=== PATIENT | male | born 1975 | race Caucasian/White ===

== ENCOUNTER 2017-03-20 09:23 | Emergency (ER) | payer OTHER ==
[~2017-03-20] VITALS: Ht 172.7 cm; Wt 98.5 kg
[~2017-03-20 09:23] MED LIST: ACET-1256 PO; MELA3CAP PO
[2017-03-20 09:26] VITALS: TEMP 36.8; Ht 172.7 cm; Wt 98.5 kg
[2017-03-20] MEDS ORDERED: SULFAMETHOXAZOLE/TRIMETHOPRIM DS 800/160MG TAB PO STA (10:12)
[2017-03-20] MEDS ORDERED: SULF800T23 PO (10:15)
[2017-03-20] MEDS ORDERED: CEPHALEXIN MONOHYDRATE 250 MG CAP PO ONE (10:15)
[2017-03-20] MEDS ORDERED: CEPH500C PO (10:15)
[2017-03-20 10:37] VITALS: BP 129/85; PULSE 81; O2SAT 97
--- NOTE | 2017-03-20 16:45 | EMERGENCY ROOM VISIT NOTE ---
History Report prepared by Cathryn: Shruti Panchal Under the Supervision of: Benitez CarcamoO. First contact with patient: 09:53 Chief Complaint: NASAL PAIN/INJURY Stated Complaint: SWOLLEN NOSE History of Present Illness The patient is a 42 year old male who presents to the Emergency Room with complaints of worsening nasal pain for the past 2-3 days. He reports that the pain started on the left side of his nose 2-3 days ago. Initially he thought that his symptoms were due to his seasonal allergies. He reports rhinorrhea and has frequently been blowing his nose due to allergies. Yesterday he noticed swelling to his nose. The patient has a history of cellulitis and has had cellulitis on his nose in the past. He states that his current symptoms feel like his previous cellulitis. He rates his pain as a 6/10 in severity. He is able to swallow and breathe without difficulty. The patient denies fevers, sore throat, cough, and shortness of breath. Source of History: patient Onset: 2-3 days ago Position: nose Symptom Intensity: 6/10 Quality: other (swelling) Timing: worsening Associated Symptoms: No SOB, No cough, No fevers, No sorethroat Review of Systems See HPI for pertinent positives & negatives. A total of 10 systems reviewed and were otherwise negative. Past Medical & Surgical Medical Problems: (1) Hypertension Surgical Problems: (1) S/P appendectomy Family History FHx: cancer Hypertension Social History Smoking Status: Never Smoker Smokeless Tobacco Use: No Alcohol Use: none Marital Status: Housing Status: lives with family Occupation Status: employed Current/Historical Medications Scheduled Cephalexin Monohydrate (Keflex), 500 MG PO QID Sulfamethoxazole-Trimethoprim (Bactrim Ds 800MG/160MG), 1 TAB PO BID Scheduled PRN Acetaminophen (Tylenol), 1,000 MG PO Q3HRS PRN for Pain Melatonin (Melatonin), 6 MG PO HS PRN for Sleep Allergies Coded Allergies: No Known Allergies (Verified , `, 03/20/17) Physical Exam Vital Signs Date Time Temp Pulse Resp B/P Pulse Ox O2 Delivery O2 Flow Rate FiO2 03/20/17 10:37 81 18 129/85 97 03/20/17 09:26 36.8 88 18 137/87 96 Room Air Physical Exam GENERAL: alert, well appearing, well nourished, no distress, non-toxic, sitting up in bed. EYE EXAM: normal conjunctiva OROPHARYNX: no exudate, no erythema, lips, buccal mucosa, and tongue normal and mucous membranes are moist NECK: supple, no nuchal rigidity, no adenopathy, non-tender NOSE: Firmness and swelling over the left lateral soft tissue of the nasal cartilage, no erythema or induration. Skin is firm. LUNGS: Clear to auscultation. Normal chest wall mechanics HEART: no murmurs, S1 normal and S2 normal ABDOMEN: abdomen soft, non-tender, normo-active bowel sounds, no masses, no rebound or guarding. SKIN: no rashes and no bruising UPPER EXTREMITIES: upper extremities are grossly normal. LOWER EXTREMITIES: No pitting edema. NEURO EXAM: Normal sensorium Medical Decision & Procedures Medications Administered Medications (Trade) Dose Ordered Sig/Chin Route Start Time Stop Time Status Last Admin Dose Admin Trimethoprim/ Sulfamethoxazole (Septra Ds 800/ 160MG Tab) 1 tab NOW STAT PO 03/20/17 10:12 03/20/17 10:13 DC 03/20/17 10:33 1 TAB Cephalexin Monohydrate (Keflex Cap) 500 mg NOW ONCE PO 03/20/17 10:15 03/20/17 10:16 DC 03/20/17 10:33 500 MG ED Course ED COURSE: Vital signs were reviewed and showed normal vitals. The patients medical record was reviewed The above diagnostic studies were performed and reviewed. ED treatments and interventions as stated above. 0954: The patient was evaluated in room B11B. A complete history and physical examination was performed. At this time I discussed my findings with the patient and he understands and agrees with the treatment plan. Based on the patients age, coexisting illnesses, exam and lab findings the decision to treat as an outpatient was made. 1012: Septra Ds 800/160 mg tab PO 1015: Keflex 500 mg PO The patient remained stable while under my care. The patient appeared well at the time of discharge. Medical Decision Differential diagnosis includes etiologies such as cellulitis, abscess, MRSA infection, DVT, necrotizing fasciitis, dermatitis, drug eruption, as well as others were entertained. Patient is a 42-year-old male who presents the ER for swelling in the left lateral aspect of his nose. No surrounding erythema or induration. It is tender. He has several comedones present but there is no overt signs of infection. There us no signs of septal or preseptal cellulitis. Based on the swelling I do favor this is likely secondary to a comedone that may be possibly starting to get infected. He was given antibiotics and discharged follow-up with his primary care doctor. Discussed with Pt concerning signs and symptoms to watch out for. Pt was instructed to follow up with their PCP and discussed with the patient their option to return to the ED at anytime for persistent or worsening symptoms. The appropriate anticipatory guidance and out-patient management, including indications for return to the emergency department, were explained at length to the patient and understood. Impression Primary Impression: Nasal swelling Scribe Attestation The scribe's documentation has been prepared under my direction and personally reviewed by me in its entirety. I confirm that the note above accurately reflects all work, treatment, procedures, and medical decision making performed by me. Departure Information Dispostion Home / Self-Care Prescriptions Cephalexin Monohydrate (Keflex) 500 Mg Cap 500 MG PO QID, #28 CAP Prov: Jesus Chester, DO 03/20/17 Sulfamethoxazole-Trimethoprim (Bactrim Ds 800MG/160MG) 1 Tab Tab 1 TAB PO BID, #7 TAB Prov: Jesus Chester, DO 03/20/17 Referrals No Doctor, Assigned (PCP) Forms HOME CARE DOCUMENTATION FORM, IMPORTANT VISIT INFORMATION, WORK / SCHOOL INSTRUCTIONS Patient Instructions Cellulitis - [facility], [facility] Additional Instructions Please follow up with your primary care doctor with in the next 24 hours. Any worsening of your symptoms, please return to the ED immediately. This includes fevers greater than 100.4, change in vision, redness around your eye, swelling around your eye, pain with movement of your eye, trouble swallowing, trouble breathing or any other concerning signs or symptoms from your standpoint. Please take antibiotics as prescribed. Please apply warm compresses to the affected area. Please take Motrin or Tylenol as needed for pain.
== END 2017-03-20 10:38 | disposition home or self-care (01) ==
LOC: C.EDB 09:24
DX: J34.89 Other specified disorders of nose and nasal sinuses (principal); I10 Essential (primary) hypertension; Z98.890 Other specified postprocedural states; Z80.9 Family history of malignant neoplasm, unspecified; Z82.49 Family history of ischemic heart disease and other diseases of the circulatory system

== ENCOUNTER 2018-05-18 16:23 | Inpatient (IN) | payer OTHER ==
[~2018-05-18] VITALS: Ht 170.2 cm; Wt 97.2 kg
[2018-05-18] MEDS ORDERED: ACETAMINOPHEN 500 MG TAB PO STA (16:40)
[2018-05-18] MEDS ORDERED: KETOROLAC TROMETHAMINE 30 MG/ML VIAL IV STA (16:40)
[2018-05-18] MEDS ORDERED: SODIUM CHLORIDE 0.9% 1000ML 1,000 ML IV ONE (16:45)
[2018-05-18] MEDS ORDERED: IBUP-1451 PO (16:46)
--- NOTE | 2018-05-18 17:10 | EMERGENCY ROOM VISIT NOTE ---
History First contact with patient: 16:34 Chief Complaint: FEVER Stated Complaint: PAIN IN THE KIDNEY AREA, TEMP 100 History of Present Illness The patient is a 43 year old male who presents to the Emergency Room with complaints of a fever of 100F, headache and flank pain that started yesterday morning. Patient initially thought that he was getting 1 of his migraines. Usually, the patient gets a visual disturbance with his migraines. This was absent. The patient took ibuprofen with moderate pain relief. He denies any severe neck pain. He has had significant dysuria. This started yesterday. He denies any hematuria. No penile discharge. No scrotal discomfort. He denies any history of kidney stones. He denies any nausea or vomiting. He does admit to a decreased appetite over the last 2 days. No changes in bowel movements. Review of Systems 10 system review performed and negative unless noted in HPI or below Past Medical/Surgical History Medical Problems: (1) Hypertension (2) Sepsis Surgical Problems: (1) S/P appendectomy Family History FHx: cancer Hypertension Social History Smoking Status: Never Smoker Alcohol Use: none Marital Status: Housing Status: lives with family Occupation Status: employed Current/Historical Medications Scheduled PRN Ibuprofen Tab (Motrin), 800 MG PO Q8H PRN for Pain Physical Exam Vital Signs Date Time Temp Pulse Resp B/P (MAP) Pulse Ox O2 Delivery O2 Flow Rate FiO2 05/18/18 18:49 37.5 102 18 119/62 95 05/18/18 16:30 39.2 117 18 130/71 98 Room Air Physical Exam GENERAL: 43-year-old male, in no acute distress, nondiaphoretic, well-developed well-nourished. SKIN: The skin was without rashes, erythema, edema, or bruising. HEAD: Normocephalic atraumatic. EYES: Conjunctivae without injection, sclerae without icterus. Extraocular movements intact. MOUTH: Mucous membranes dry tonsils are not enlarged. Pharynx without erythema or exudate. Uvula midline. Airway patent. Tongue does not deviate. NECK: Supple without nuchal rigidity. No lymphadenopathy. Cervical spine is nontender. No JVD. HEART: Regular rate and rhythm without murmurs gallops or rubs. LUNGS: Clear to auscultation bilaterally without wheezes, rales or rhonchi. No accessory muscle use. ABDOMEN: Positive bowel sounds x 4.Soft, nontender, without organomegaly. No guarding or rebound tenderness. No CVA tenderness appreciated bilaterally. MUSCULOSKELETAL: No muscle atrophy, erythema, or edema noted. No tenderness over the spinous processes throughout the spine. Full range of motion in all extremities. No tenderness to palpation. Normal gait. Strength 5/5 throughout. NEURO: Patient was alert and oriented to person place and time. Normal sensation to touch. No focal neurological deficits. Medical Decision & Procedures ER Provider Diagnostic Interpretation: CT abdomen and pelvis with and without contrast IMPRESSION: 1. Slight nonspecific bladder wall thickening. 2. Minimal sigmoid wall thickening raising the possibility of a mild nonspecific colitis. 3. No evidence for abscess collection or obstructive change. The above report was generated using voice recognition software. It may contain grammatical, syntax or spelling errors. Electronically signed by: Adolfo Solorio M.D. 05/18/2018 6:51 PM Dictated Date/Time: 05/18/2018 6:48 PM The status of this report is Signed. Draft = Not yet reviewed or approved by Radiologist. Signed = Reviewed and approved by Radiologist. Laboratory Results 05/18/18 17:15 Red Blood Count 4.64, Mean Corpuscular Volume 93.5, Mean Corpuscular Hemoglobin 32.8, Mean Corpuscular Hemoglobin Concent 35.0, Mean Platelet Volume 9.4, Neutrophils (%) (Auto) 93.4, Lymphocytes (%) (Auto) 3.0, Monocytes (%) (Auto) 3.3, Eosinophils (%) (Auto) 0.1, Basophils (%) (Auto) 0.0, Neutrophils # (Auto) 10.04, Lymphocytes # (Auto) 0.32, Monocytes # (Auto) 0.35, Eosinophils # (Auto) 0.01, Basophils # (Auto) 0.00 05/18/18 17:15 Test 05/18/18 17:15 05/18/18 17:40 05/18/18 19:00 White Blood Count 10.74 K/uL (4.8-10.8) Red Blood Count 4.64 M/uL (4.7-6.1) Hemoglobin 15.2 g/dL (14.0-18.0) Hematocrit 43.4 % (42-52) Mean Corpuscular Volume 93.5 fL (80-100) Mean Corpuscular Hemoglobin 32.8 pg (25-34) Mean Corpuscular Hemoglobin Concent 35.0 g/dl (32-36) Platelet Count 188 K/uL (130-400) Mean Platelet Volume 9.4 fL (7.4-10.4) Neutrophils (%) (Auto) 93.4 % Lymphocytes (%) (Auto) 3.0 % Monocytes (%) (Auto) 3.3 % Eosinophils (%) (Auto) 0.1 % Basophils (%) (Auto) 0.0 % Neutrophils # (Auto) 10.04 K/uL (1.4-6.5) Lymphocytes # (Auto) 0.32 K/uL (1.2-3.4) Monocytes # (Auto) 0.35 K/uL (0.11-0.59) Eosinophils # (Auto) 0.01 K/uL (0-0.5) Basophils # (Auto) 0.00 K/uL (0-0.2) RDW Standard Deviation 42.6 fL (36.4-46.3) RDW Coefficient of Variation 12.5 % (11.5-14.5) Immature Granulocyte % (Auto) 0.2 % Immature Granulocyte # (Auto) 0.02 K/uL (0.00-0.02) Anion Gap 7.0 mmol/L (3-11) Est Creatinine Clear Calc Drug Dose 93.1 ml/min Estimated GFR () 90.2 Estimated GFR (Non- 77.8 BUN/Creatinine Ratio 7.1 (10-20) Calcium Level 8.4 mg/dl (8.5-10.1) Magnesium Level 1.8 mg/dl (1.8-2.4) Total Bilirubin 1.0 mg/dl (0.2-1) Aspartate Amino Transf (AST/SGOT) 18 U/L (15-37) Alanine Aminotransferase (ALT/SGPT) 29 U/L (12-78) Alkaline Phosphatase 73 U/L (45-117) Total Protein 7.6 gm/dl (6.4-8.2) Albumin 3.7 gm/dl (3.4-5.0) Globulin 3.9 gm/dl (2.5-4.0) Albumin/Globulin Ratio 0.9 (0.9-2) Thyroid Stimulating Hormone (TSH) 0.714 uIu/ml (0.300-4.500) Urine Color YELLOW Urine Appearance CLEAR (CLEAR) Urine pH 8.0 (4.5-7.5) Urine Specific [place] 1.016 (1.000-1.030) Urine Protein TRACE (NEG) Urine Glucose (UA) NEG (NEG) Urine Ketones NEG (NEG) Urine Occult Blood TRACE (NEG) Urine Nitrite NEG (NEG) Urine Bilirubin NEG (NEG) Urine Urobilinogen NEG (NEG) Urine Leukocyte Esterase LARGE (NEG) Urine WBC (Auto) >30 /hpf (0-5) Urine RBC (Auto) 5-10 /hpf (0-4) Urine Hyaline Casts (Auto) 1-5 /lpf (0-5) Urine Epithelial Cells (Auto) 0-5 /lpf (0-5) Urine Bacteria (Auto) 4+ (NEG) Lactic Acid Level 1.1 mmol/L (0.4-2.0) Medications Administered Medications (Trade) Dose Ordered Sig/Chin Route Start Time Stop Time Status Last Admin Dose Admin Ketorolac Tromethamine (Toradol Inj) 30 mg NOW STAT IV 05/18/18 16:40 05/18/18 16:42 DC 05/18/18 17:33 30 MG Sodium Chloride 1,000 ml @ 999 mls/hr Q1H1M ONCE IV 05/18/18 16:45 05/18/18 17:45 DC 05/18/18 17:32 999 MLS/HR Acetaminophen (Tylenol Tab) 1,000 mg NOW STAT PO 05/18/18 16:40 05/18/18 16:42 DC 05/18/18 17:34 1,000 MG Ceftriaxone Sodium (Rocephin Inj) 1 gm NOW STAT IV 05/18/18 18:13 05/18/18 18:16 DC 05/18/18 18:24 1 GM Hydromorphone HCl (Dilaudid Inj) 1 mg Q1H PRN IV 05/18/18 18:30 05/18/18 20:03 DC 05/18/18 18:48 1 MG Ketorolac Tromethamine (Toradol Inj) 15 mg Q6H PRN IV. 05/18/18 20:15 05/23/18 20:14 05/18/18 22:12 15 MG ED Course Patient was seen and examined Vital signs including blood pressure were reviewed medications list was verified with patient Labs were obtained, and a saline lock was established The patient was hydrated with 1 L of normal saline. He was medicated with Toradol 30 mg IV and Tylenol 1 g p.o. The patient was reevaluated and still complaining of pain. We discussed his workup. He voiced understanding. He was ordered Dilaudid 1 mg IV. He was also ordered Rocephin 1 g IV. Imaging was performed and reviewed The case was discussed with my supervising physician who is in agreement with my plan The case was then discussed with case management, and the [facility] service. They kindly agreed to evaluate the patient for further treatment/admission Medical Decision Differential diagnosis: UTI, ureteral stone, infected stone, pyelonephritis, sepsis, meningitis, epidural abscess, epididymitis, among others were entertained This patient is a 43-year-old male that presents to the emergency department with fever and back pain. He was febrile in the emergency department at 39.2. He was also tachycardic. His labs reveal a urinary tract infection. CT of the abdomen and pelvis was performed. No ureteral stone was noted. I believe the patient likely has pyelonephritis. I do not feel comfortable sending the patient home on oral antibiotics. The [facility] Hospitalist service agreed to evaluate the patient for possible admission This chart was completed in part utilizing [employer] Speech Voice Recognition software. Attempts were made to minimize the grammatical errors, random word insertions, pronoun errors and incomplete sentences. Any formal questions or concerns about the content, text or information contained within the body of this dictation should be directly addressed to the provider for clarification. Consults Consulting Physician: [facility] Hospitalist service Impression Primary Impression: Pyelonephritis Departure Information Referrals No Doctor, Assigned (PCP) Patient Instructions [facility]
[2018-05-18 17:37] LABS: EOS % 0.1 %; EOS ABS # 0.01 K/uL (0-0.5); HEMATOCRIT 43.4 % (42-52); HEMOGLOBIN 15.2 g/dL (14.0-18.0); IG# 0.02 K/uL (0.00-0.02); LYMPH ABS # 0.32 K/uL (1.2-3.4); MEAN CELL VOLUME 93.5 fL (80-100); MEAN CORPUSCULAR HEMOGLOBIN 32.8 pg (25-34); MEAN PLATELET VOLUME 9.4 fL (7.4-10.4); MONO % 3.3 %; MONO ABS # 0.35 K/uL (0.11-0.59); NEUT % 93.4 %; NEUT ABS # 10.04 K/uL (1.4-6.5); PLATELET COUNT 188 K/uL (130-400); RED CELL DISTRIBUTION WIDTH CV 12.5 % (11.5-14.5); RED CELL DISTRIBUTION WIDTH SD 42.6 fL (36.4-46.3); WHITE BLOOD COUNT 10.74 K/uL (4.8-10.8)
[2018-05-18 18:13] LABS: ALBUMIN 3.7 gm/dl (3.4-5.0); CALCIUM 8.4 mg/dl (8.5-10.1); CREATININE 1.16 mg/dl (0.60-1.40); POTASSIUM 3.7 mmol/L (3.5-5.1); TOTAL PROTEIN 7.6 gm/dl (6.4-8.2)
[2018-05-18] MEDS ORDERED: CEFTRIAXONE SOD INJ 1 GM ADDVIAL IV STA (18:13)
[2018-05-18] MEDS ORDERED: HYDROmorphone INJ 1 MG/ML SYR IV PRN (18:30)
[2018-05-18] MEDS ORDERED: OPTIRAY 320 IV PRN (18:30)
--- NOTE | 2018-05-18 18:52 | DIAGNOSTIC IMAGING REPORT ---
ABD/PELVIS COMBO CT DOSE: 1420.70 mGy.cm HISTORY: Pain fever flank pain UTI TECHNIQUE: Multiaxial CT images of the abdomen and pelvis were performed pre and post intravenous contrast enhancement. A dose lowering technique was utilized adhering to the principles of ALARA. COMPARISON STUDY: 08/23/2016 FINDINGS: Lung bases are clear. No abnormal calcifications within the urinary tracts. Configuration of liver spleen and pancreas are unremarkable. Kidneys enhance uniformly. No evidence for hydronephrosis. The adrenal glands are normal. Bowel pattern is nonobstructive. Slight wall thickening of the sigmoid colon no evidence for abscess collection or obstruction. No significant abdominal pelvic or inguinal adenopathy. Prior appendectomy. Slight bladder wall thickening. IMPRESSION: 1. Slight nonspecific bladder wall thickening. 2. Minimal sigmoid wall thickening raising the possibility of a mild nonspecific colitis. 3. No evidence for abscess collection or obstructive change. The above report was generated using voice recognition software. It may contain grammatical, syntax or spelling errors. Electronically signed by: Adolfo Solorio M.D. 05/18/2018 6:51 PM Dictated Date/Time: 05/18/2018 6:48 PM
[2018-05-18] MEDS ORDERED: TRAMADOL HCL 50 MG TAB PO PRN (20:15)
[2018-05-18] MEDS ORDERED: PROCHLORPERAZINE INJ 5 MG in SYRINGE 4 ML IV PRN (20:15)
--- NOTE | 2018-05-18 20:22 | History and Physical ---
History & Physical Date & Time of Service: May 18, 2018 at 20:21 Chief Complaint: Pain In The Kidney Area, Temp 100 Primary Care Physician: No Doctor, Assigned History of Present Illness Source: patient, clinic records, hospital records Patient is a 43-year-old male with PMH of migraines who presents with fever of 100F and lower back pain starting yesterday morning. Patient describes back pain as 4/10, throbbing and constant with radiation to his flank bilaterally. Took some ibuprofen which improved symptoms but continued to feel "sluggish". Also endorses burning during and after urination as well as decreased appetite and dull headache. Denies any hematuria or pyuria. Denies any history of kidney stones. Denies chills, lightheadedness, visual changes, chest pain, shortness of breath, abdominal pain, nausea, vomiting, constipation, diarrhea, melena or hematochezia. Had a normal bowel movement last evening. Does not have a primary care physician currently. Past Medical/Surgical History Medical Problems: (1) Hypertension Status: Chronic Surgical Problems: (1) S/P appendectomy Status: Chronic Family History FHx: cancer Hypertension Social History Smoking Status: Never Smoker Alcohol Use: none Drug Use: none Marital Status: in relationship Housing status: lives with significant other Occupational Status: employed Immunizations History of Influenza Vaccine: No History of Tetanus Vaccine?: No History of Pneumococcal: No History of Hepatitis B Vaccine: No Allergies Coded Allergies: No Known Allergies (Verified , `, 05/18/18) Home Medications Scheduled PRN Ibuprofen Tab (Motrin), 800 MG PO Q8H PRN for Pain Review of Systems Ten systems reviewed and negative except as noted in the HPI. Physical Exam Vital Signs Date Time Temp Pulse Resp B/P (MAP) Pulse Ox O2 Delivery O2 Flow Rate FiO2 05/18/18 18:49 37.5 102 18 119/62 95 05/18/18 16:30 39.2 117 18 130/71 98 Room Air General Appearance: WD/WN, no apparent distress, + pertinent finding (Resting comfortably, watching TV) Head: normocephalic, atraumatic Eyes: normal inspection, PERRL, sclerae normal ENT: normal ENT inspection, hearing grossly normal, pharynx normal (Moist mucous membranes) Neck: supple, thyroid normal, trachea midline Respiratory/Chest: chest non-tender, lungs clear, normal breath sounds, no respiratory distress, no accessory muscle use Cardiovascular: no edema, no murmur, normal peripheral pulses Abdomen/GI: normal bowel sounds, non tender, soft, no organomegaly Back: normal inspection, + left CVA tenderness, + right CVA tenderness Extremities/Musculoskelatal: normal inspection, no calf tenderness, no pedal edema Neurologic/Psych: no motor/sensory deficits, alert, normal mood/affect, oriented x 3 Skin: normal color, warm/dry, no rash Diagnostics Laboratory Results Results Past 24 Hours Test 05/18/18 17:15 05/18/18 17:40 05/18/18 19:00 05/18/18 20:00 Range/Units White Blood Count 10.74 4.8-10.8 K/uL Red Blood Count 4.64 4.7-6.1 M/uL Hemoglobin 15.2 14.0-18.0 g/dL Hematocrit 43.4 42-52 % Mean Corpuscular Volume 93.5 80-100 fL Mean Corpuscular Hemoglobin 32.8 25-34 pg Mean Corpuscular Hemoglobin Concent 35.0 32-36 g/dl Platelet Count 188 130-400 K/uL Mean Platelet Volume 9.4 7.4-10.4 fL Neutrophils (%) (Auto) 93.4 % Lymphocytes (%) (Auto) 3.0 % Monocytes (%) (Auto) 3.3 % Eosinophils (%) (Auto) 0.1 % Basophils (%) (Auto) 0.0 % Neutrophils # (Auto) 10.04 1.4-6.5 K/uL Lymphocytes # (Auto) 0.32 1.2-3.4 K/uL Monocytes # (Auto) 0.35 0.11-0.59 K/uL Eosinophils # (Auto) 0.01 0-0.5 K/uL Basophils # (Auto) 0.00 0-0.2 K/uL RDW Standard Deviation 42.6 36.4-46.3 fL RDW Coefficient of Variation 12.5 11.5-14.5 % Immature Granulocyte % (Auto) 0.2 % Immature Granulocyte # (Auto) 0.02 0.00-0.02 K/uL Sodium Level 133 136-145 mmol/L Potassium Level 3.7 3.5-5.1 mmol/L Chloride Level 101 98-107 mmol/L Carbon Dioxide Level 25 21-32 mmol/L Anion Gap 7.0 3-11 mmol/L Blood Urea Nitrogen 8 7-18 mg/dl Creatinine 1.16 0.60-1.40 mg/dl Est Creatinine Clear Calc Drug Dose 93.1 ml/min Estimated GFR () 90.2 Estimated GFR (Non- 77.8 BUN/Creatinine Ratio 7.1 10-20 Random Glucose 123 70-99 mg/dl Calcium Level 8.4 8.5-10.1 mg/dl Total Bilirubin 1.0 0.2-1 mg/dl Aspartate Amino Transf (AST/SGOT) 18 15-37 U/L Alanine Aminotransferase (ALT/SGPT) 29 12-78 U/L Alkaline Phosphatase 73 45-117 U/L Total Protein 7.6 6.4-8.2 gm/dl Albumin 3.7 3.4-5.0 gm/dl Globulin 3.9 2.5-4.0 gm/dl Albumin/Globulin Ratio 0.9 0.9-2 Urine Color YELLOW Urine Appearance CLEAR CLEAR Urine pH 8.0 4.5-7.5 Urine Specific [place] 1.016 1.000-1.030 Urine Protein TRACE NEG Urine Glucose (UA) NEG NEG Urine Ketones NEG NEG Urine Occult Blood TRACE NEG Urine Nitrite NEG NEG Urine Bilirubin NEG NEG Urine Urobilinogen NEG NEG Urine Leukocyte Esterase LARGE NEG Urine WBC (Auto) >30 0-5 /hpf Urine RBC (Auto) 5-10 0-4 /hpf Urine Hyaline Casts (Auto) 1-5 0-5 /lpf Urine Epithelial Cells (Auto) 0-5 0-5 /lpf Urine Bacteria (Auto) 4+ NEG Lactic Acid Level 1.1 0.4-2.0 mmol/L Microbiology Results 05/18/18 Blood Culture, Received Pending 05/18/18 Blood Culture, Received Pending 05/18/18 Urine Culture, Received Pending Diagnostic Radiology CT abd/pelvis: IMPRESSION: 1. Slight nonspecific bladder wall thickening. 2. Minimal sigmoid wall thickening raising the possibility of a mild nonspecific colitis. 3. No evidence for abscess collection or obstructive change. Impression Assessment and Plan Patient is a 43-year-old male with PMH of migraines who presents with fever of 100F and lower back pain starting yesterday morning. Acute pyelonephritis -Fever, dysuria, flank and CVA pain x 2 days -Febrile at 39.2 on admission, tachycardic to 117 -No leukocytosis, lactic acid within normal limits -UA + for leuk esterase, wbc, urine bacteria -Blood and urine cultures pending -IV cipro -IV fluids -Analgesics ? Colitis -No abdominal pain, nausea or vomiting -No bowel changes -CT abd/pelvis with minimal sigmoid wall thickening raising the possibility of a mild nonspecific colitis -Clear liquid diet overnight Hyperglycemia -BSG elevated to 123 initially -A1c pending to evaluate for DM II Code status: FULL PCP: Unassigned. Will need establish care with [facility] PCP upon discharge Dispo: In-patient med/surg. Plan to return home once medically stable. Patient seen in collaboration with Dr. Bautista. Please see addendum. Resuscitation Status VTE Prophylaxis Will order VTE Prophylaxis: Yes Assessment/Plan IM ATTENDING : Patient seen and examined. History obtained from patient and records. Preceding documentation by Ms. Chrissie Ni PA-C reviewed. FINAL ASSESSMENT AND PLAN as follows : 1. Sepsis secondary to complicated urinary tact infection. CT abdomen and pelvis read : minimal sigmoid wall thickening with cystitis. Patient denies GI symptoms. 2. Borderline hypertension as per patient GMF CS CS IVF, IV Ciprofloxacin for UTI. DVT prophylaxis, Lovenox on subQ. Full code.
[2018-05-18 20:58] VITALS: O2SAT 95
[2018-05-18 21:01] VITALS: Ht 170.2 cm; Wt 97.2 kg
[2018-05-18] MEDS ORDERED: CIPROFLOXACIN 400MG / 200ML D5W IV STA (21:35)
[2018-05-18] MEDS ORDERED: LACTOBACILLUS ACIDOPHILUS 1 GM PACK PO ONE (21:35)
[2018-05-18] MEDS ORDERED: LORAZEPAM 2 MG/ML 1 ML VIAL IV PRN (21:45)
[2018-05-18] MEDS ORDERED: LORAZEPAM INJ 0.5 MG in SYRINGE 0.75 ML IV PRN (22:00)
[2018-05-18] MEDS ORDERED: CALCIUM GLUCONATE 10% 1,000 MG in SODIUM CHLORIDE 0.9% 50ML 50 ML IV ONE (22:00)
[2018-05-18] MEDS ORDERED: CIPROFLOXACIN CONSULT ACTIVE PRN (22:00)
[2018-05-18] MEDS: KETOROLAC TROMETHAMINE 15 MG/ML VIAL IV. PRN (22:12)
[2018-05-18] MEDS ORDERED: NSS + 20MEQ KCL 1000ML 1,000 ML IV ONE (22:45)
[2018-05-18] MEDS: CIPROFLOXACIN 400MG / D5W IV SCH (22:58)
[2018-05-19] MEDS: MoRPHine SULFATE 4 MG/ML 1 ML CARP\\VIAL IV PRN ×3 (00:43→14:09)
--- NOTE | 2018-05-19 04:47 | HISTORY & PHYSICAL EXAMINATION ---
DATE OF ADMISSION: 05/18/2018 Patient seen and examined. History obtained from patient and records. Preceding documentation by Ms. Chrissie Ni PA-C reviewed. FINAL ASSESSMENT AND PLAN as follows : 1. Sepsis secondary to complicated urinary tact infection. CT abdomen and pelvis read : minimal sigmoid wall thickening with cystitis. Patient denies GI symptoms. 2. Borderline hypertension as per patient GMF CS CS IVF, IV Ciprofloxacin for now. DVT prophylaxis, Lovenox on subQ. Full code. MTDD
[2018-05-19 06:11] LABS: HEMOGLOBIN A1C 5.5 % (4.5-5.6)
[2018-05-19 07:46] VITALS: BP 105/66; PULSE 98; TEMP 37.2; O2SAT 95
[2018-05-19] MEDS: LACTOBACILLUS ACIDOPHILUS 1 GM PACK PO SCH ×3 (08:10→17:35)
[2018-05-19 08:41] LABS: BASO % 0.1 %; BASO ABS # 0.01 K/uL (0-0.2); EOS % 0.2 %; EOS ABS # 0.02 K/uL (0-0.5); HEMATOCRIT 40.9 % (42-52); HEMOGLOBIN 13.8 g/dL (14.0-18.0); IG# 0.02 K/uL (0.00-0.02); LYMPH % 5.9 %; LYMPH ABS # 0.74 K/uL (1.2-3.4); MEAN CELL VOLUME 93.6 fL (80-100); MEAN CORPUSCULAR HEMOGLOBIN 31.6 pg (25-34); MEAN CORPUSCULAR HGB CONC 33.7 g/dl (32-36); MEAN PLATELET VOLUME 9.5 fL (7.4-10.4); MONO % 6.5 %; MONO ABS # 0.82 K/uL (0.11-0.59); NEUT % 87.1 %; NEUT ABS # 10.93 K/uL (1.4-6.5); PLATELET COUNT 205 K/uL (130-400); RED CELL DISTRIBUTION WIDTH CV 12.8 % (11.5-14.5); RED CELL DISTRIBUTION WIDTH SD 43.9 fL (36.4-46.3); WHITE BLOOD COUNT 12.54 K/uL (4.8-10.8)
[2018-05-19 08:48] LABS: CALCIUM 8.2 mg/dl (8.5-10.1); CREATININE 1.13 mg/dl (0.60-1.40); POTASSIUM 3.7 mmol/L (3.5-5.1)
[2018-05-19] MEDS: KETOROLAC TROMETHAMINE 15 MG/ML VIAL IV. PRN ×2 (09:32→19:31)
[2018-05-19] MEDS: CIPROFLOXACIN 400MG / D5W IV SCH ×2 (11:29→22:52)
[2018-05-19] MEDS: IBUPROFEN 200 MG TAB PO PRN ×2 (12:53→20:46)
[2018-05-19 15:52] VITALS: BP 116/68; PULSE 87; TEMP 37; O2SAT 96
--- NOTE | 2018-05-19 18:43 | Progress Note ---
Progress Note Date of Service May 19, 2018. Progress Note Subjective: Patient seen and examined today and feeling better. Denied worsening abdominal or back pain symptoms. Denied vomiting. Denied chest pain and shortness of breath. Nurse did report patient spike a temperature again of 39 degrees celsius. Physical exam General Appearance: no apparent distress Head: normocephalic, atraumatic Eyes: normal inspection, sclerae normal ENT: normal ENT inspection, hearing grossly normal Neck: supple, thyroid normal, trachea midline Respiratory/Chest: chest non-tender, lungs clear, normal breath sounds, no respiratory distress, no accessory muscle use Cardiovascular: no edema, no murmur, normal peripheral pulses Abdomen/GI: normal bowel sounds, non tender, soft, no organomegaly Back: normal inspection, some tenderness on palpation of right flank Extremities/Musculoskelatal: normal inspection, no calf tenderness, no pedal edema Neurologic/Psych: no motor/sensory deficits, alert, normal mood/affect, oriented x 3 Skin: normal color, warm/dry, no rash Assessment and Plan Acute pyelonephritis vs complicated UTI vs bacteremia -Fever, dysuria, flank and CVA pain x 2 days -Febrile at 39.2 on admission, tachycardic to 117 -no obvious CT finding of pyelonephritis CT abdomen and pelvis read : minimal sigmoid wall thickening with cystitis E.coli in the urine of a male patient, the infection is likely genitourinary in etiology versus a bacteremia rather than a gastrointestinal source -UA + for leuk esterase, wbc, urine bacteria -patient empirically started on IV ciprofloxacin -urine culture from admission with E.coli -blood culture still pending -continue IV antibiotics for now as IV ciprofloxacin - despite being on IV ciprofloxacin patient continues to spike fever and will expand antibiotic coverage to include Zosyn , await antibiotic sensitivity, continue analgesics HbA1c 5.5 DVT ppx Full Code
[2018-05-19 18:46] VITALS: TEMP 39
[2018-05-19] MEDS ORDERED: PIPERACILL/TAZOBAC IV 3.375 GM in DEXTROSE 5% 100ML 100 ML IV ONE (18:58)
[2018-05-19] MEDS ORDERED: ACETAMINOPHEN 325 MG TAB PO PRN (19:00)
[2018-05-19] MEDS ORDERED: PIPERACILL/TAZOBAC CONSULT ACTIVE PRN (19:00)
[2018-05-19 20:40] VITALS: BP 111/74; PULSE 98; TEMP 38.1; O2SAT 95
[2018-05-19 23:01] VITALS: BP 119/76; PULSE 78; TEMP 36.9; O2SAT 96
[2018-05-20] MEDS: PIPERACILL/TAZOBAC IV 3.375 GM in D5W 100ML IV SCH ×2 (01:15→08:32)
[2018-05-20] MEDS: IBUPROFEN 200 MG TAB PO PRN ×2 (03:57→17:13)
[2018-05-20 07:04] VITALS: BP 97/59; PULSE 80; TEMP 36.8; O2SAT 97
[2018-05-20] MEDS: LACTOBACILLUS ACIDOPHILUS 1 GM PACK PO SCH ×3 (08:32→17:00)
[2018-05-20] MEDS: CIPROFLOXACIN 400MG / D5W IV SCH (13:09)
--- NOTE | 2018-05-20 15:22 | Medical Consult ---
Consultation Date of Consultation: May 20, 2018. Attending Physician: Luis Miguel Love M.D. Reason for Consultation: Length and duration of antibiotics History of Present Illness 43-year-old male with history of hypertension, otherwise in good health was well until approximately 2 days prior to admission when he awoke with what he thought was a severe migraine headache. Headache improved but persisted throughout the day, then patient developed significant dysuria associated with lower back pain. He then developed fever with chills, worsening dysuria and eventually came to the emergency department and admitted for further management. Urinalysis consistent with urinary tract infection, patient was treated with ciprofloxacin, culture grew relatively sensitive E. coli. Patient had recurrent fever and Zosyn was added yesterday. Patient feeling significantly better, currently afebrile, dysuria significantly improved. Back pain also much better. No other new complaints. Patient admits to anal intercourse several days prior to onset of symptoms. Past Medical/Surgical History Medical Problems: (1) Cellulitis Status: Acute (2) Cellulitis of nose Status: Acute (3) Nasal swelling Status: Acute (4) Pyelonephritis Status: Acute Medical Problems: (1) Hypertension (2) Sepsis Surgical Problems: (1) S/P appendectomy Family History FHx: cancer Hypertension Social History Smoking Status: Never Smoker Alcohol Use: none Drug Use: none Marital Status: in relationship Housing Status: lives with family Occupation Status: employed Allergies Coded Allergies: No Known Allergies (Verified , `, 05/18/18) Current Inpatient Medications Current Inpatient Medications Medications (Trade) Dose Ordered Sig/Chin Route Start Time Stop Time Status Last Admin Dose Admin Ioversol (Optiray 320) 100 ml UD PRN IV 05/18/18 18:30 05/22/18 18:29 Morphine Sulfate (MoRPHine SULFATE INJ) 4 mg Q3H PRN IV 05/18/18 20:15 06/01/18 20:14 05/19/18 14:09 4 MG Ketorolac Tromethamine (Toradol Inj) 15 mg Q6H PRN IV. 05/18/18 20:15 05/23/18 20:14 05/19/18 19:31 15 MG Tramadol HCl (Ultram Tab) not relieved by tyle... Q6H PRN PO 05/18/18 20:15 06/17/18 20:14 05/19/18 04:35 50 MG Ibuprofen (Advil Tab) 400 mg Q6H PRN PO 05/18/18 20:15 06/17/18 20:14 05/20/18 03:57 400 MG Prochlorperazine Edisylate 5 mg/ Syringe 5 ml @ 5 mls/min Q6H PRN IV 05/18/18 20:15 06/17/18 20:14 Ciprofloxacin (Consult) 1 [facility] PRN N/A 05/18/18 22:00 06/17/18 21:59 Lorazepam (Ativan Inj) 0.5 mg Q4H PRN IV 05/18/18 21:45 06/17/18 21:44 Lactobacillus Acidophilus (Lactinex Granules Pack) 1 gm TIDM PO 05/19/18 08:00 06/18/18 07:59 05/19/18 17:35 1 GM Lorazepam 0.5 mg/ Syringe 1 ml @ 1 mls/min Q4H PRN IV 05/18/18 22:00 06/17/18 21:59 Ciprofloxacin/ Dextrose 400 mg/ Prmx 200 ml @ 100 mls/hr Q12H IV 05/18/18 23:00 05/28/18 22:59 05/20/18 13:09 100 MLS/HR Acetaminophen (Tylenol Tab) 650 mg Q4H PRN PO 05/19/18 19:00 06/18/18 18:59 05/19/18 19:23 650 MG Miscellaneous Information (Consult) 1 [facility] PRN N/A 05/19/18 19:00 06/18/18 18:59 Piperacillin Sod/ Tazobactam Sod 3.375 gm/Dextrose 115 ml @ 28.75 mls/ hr Q8H IV 05/20/18 00:00 05/21/18 00:00 05/20/18 08:32 28.75 MLS/HR Review of Systems All systems were reviewed and are negative except as per HPI Physical Exam Date Time Temp Pulse Resp B/P (MAP) Pulse Ox O2 Delivery O2 Flow Rate FiO2 05/20/18 09:28 Room Air 05/20/18 07:04 36.8 80 20 97/59 (72) 97 Room Air 05/19/18 23:01 36.9 78 18 119/76 (90) 96 Room Air 05/19/18 20:40 38.1 98 16 111/74 (86) 95 Room Air 05/19/18 20:01 Room Air 05/19/18 18:46 39.0 05/19/18 15:52 37.0 87 20 116/68 (84) 96 Room Air General Appearance: WD/WN, no apparent distress Head: normocephalic, atraumatic Eyes: normal inspection, EOMI, sclerae normal ENT: normal ENT inspection, hearing grossly normal, pharynx normal Neck: supple, no adenopathy, thyroid normal, trachea midline Respiratory/Chest: chest non-tender, lungs clear, normal breath sounds, no respiratory distress Cardiovascular: regular rate, rhythm, no gallop, no murmur Abdomen/GI: normal bowel sounds, non tender, soft, no organomegaly Back: normal inspection, no CVA tenderness Extremities/Musculoskelatal: no calf tenderness, normal capillary refill, non- tender Neurologic/Psych: alert, oriented x 3 Skin: normal color, warm/dry, no rash Lymphatic: no adenopathy Laboratory Results ------- RUN DATE: 05/20/18 [facility] LAB PAGE 1 RUN TIME: 1302 Specimen Inquiry PATIENT: BRYON SCHOFIELD [facility]: [id number] LOC: [id number] U # : [id number] AGE/SX: 43/M ROOM: [facility] REG : 05/18/[address]: Luis Miguel Love M.D. : 1975 BED: 2 DIS : STATUS: ADM IN TLOC: SPEC #: [id number] NATALIE: 05/18/18 STATUS: ISMA REQ #: [id number] RECD: 05/18/[address] [facility] [address]: Xochitl Enriquez PA-C SOURCE: UR, CC ENTR: 05/18/18 [facility] DR: Erwin Edwards M.D. SPDESC: No Doctor, Assigned ORDERED: CULTURE URCLEAN COMMENTS: Has Specimen Been Obtained/Collected? Y Procedure Result Verified Site URINE CULTURE Final 05/20/18-1302 Organism 1 ESCHERICHIA COLI COLONY COUNT >100,000 CFU/ml SENS SENSITIVITY TO FOLLOW 1. ESCHERICHIA COLI Target Route Dose RX AB Cost M.I.C. IQ ------ ----- ------ -- ------ -------- - ------ TRIMET/SULFA R >2/38 AMPICILLIN R >16 AMPICILLIN/SUL R >16/8 CEFAZOLIN S <=8 CEFOXITIN S <=8 CEFOTAXIME S <=2 CEFTRIAXONE S <=1 CEFEPIME S <=4 CEFUROXIME S <=4 IMIPENEM S <=1 GENTAMICIN R >8 TOBRAMYCIN I 8 AMIKACIN S <=16 CIPROFLOXACIN S <=1 LEVOFLOXACIN S <=2 ERTAPENEM S <=1 NITROFURANTOIN S <=32 PIP/TAZO S <=16 S = SENSITIVE I = INTERMEDIATE R = RESISTANT END OF REPORT Patient Name: BRYON SCHOFIELD Unit Number: [id number] Dictated: 05/18/181847 Transcribed: 05/18/181847 MS Printed Date/Time: [~ rep prt dt]/[~ rep prt tm] [~ rep ct labl] - [~ rep ct ivnm] [facility] [place] [address] Dictated: 05/18/181847 Transcribed: 05/18/181847 MS Printed Date/Time: [~ rep prt dt]/[~ rep prt tm] [~ rep ct labl] - [~ rep ct ivnm] [~ rep ct add3]] ABD/PELVIS COMBO CT DOSE: 1420.70 mGy.cm HISTORY: Pain fever flank pain UTI TECHNIQUE: Multiaxial CT images of the abdomen and pelvis were performed pre and post intravenous contrast enhancement. A dose lowering technique was utilized adhering to the principles of ALARA. COMPARISON STUDY: 08/23/2016 FINDINGS: Lung bases are clear. No abnormal calcifications within the urinary tracts. Configuration of liver spleen and pancreas are unremarkable. Kidneys enhance uniformly. No evidence for hydronephrosis. The adrenal glands are normal. Bowel pattern is nonobstructive. Slight wall thickening of the sigmoid colon no evidence for abscess collection or obstruction. No significant abdominal pelvic or inguinal adenopathy. Prior appendectomy. Slight bladder wall thickening. IMPRESSION: 1. Slight nonspecific bladder wall thickening. 2. Minimal sigmoid wall thickening raising the possibility of a mild nonspecific colitis. 3. No evidence for abscess collection or obstructive change. The above report was generated using voice recognition software. It may contain grammatical, syntax or spelling errors. Electronically signed by: Adolfo Solorio M.D. 05/18/2018 6:51 PM Dictated Date/Time: 05/18/2018 6:48 PM The status of this report is Signed. Draft = Not yet reviewed or approved by Radiologist. Signed = Reviewed and approved by Radiologist. <AttendingPhy></AttendingPhy> <FamilyPhy>No Doctor, Assigned</FamilyPhy> < PrimaryPhy>No Doctor, Assigned</PrimaryPhy> <UnitNumber>[id number]</UnitNumber> <VisitNumber>[id number]</VisitNumber> <PatientName>BRYON SCHOFIELD Fartun</ PatientName> <DateOfBirth>1975</DateOfBirth> <Location>[facility]</Location> < ServiceDate>05/18/18</ServiceDate> <MNE>ESINDI</MNE> <OrderingPhy>Xochitl Enriquez PA-C</OrderingPhy> <OrderingPhyMNE>f rep ord dr bella</OrderingPhyMNE> < DictatingPhyMNE>f rep dict dr bella</DictatingPhyMNE> <CCListMNE>f rep ct mne</ CCListMNE> <AdmittingPhyMNE>f pt admit dr bella</AdmittingPhyMNE> <AttendingPhyMNE >f pt attend dr bella</AttendingPhyMNE> <ConsultingPhyMNE>f pt consult dr bella</ConsultingPhyMNE> <FamilyPhyMNE>f pt fam dr bella</FamilyPhyMNE> <OtherPhyMNE>f pt other dr bella</OtherPhyMNE> < PrimaryPhyMNE>f pt prim care dr bella</PrimaryPhyMNE> <ReferringPhyMNE>f pt referring dr bella</ReferringPhyMNE> Assessment & Plan Lower urinary tract infection, possible prostatitis with E. coli. Patient likely can be treated with oral ciprofloxacin 500 mg twice daily to complete 2 weeks of therapy. Case discussed with Dr. Love. Will follow.
[2018-05-20 15:30] VITALS: BP 120/77; PULSE 75; TEMP 37.1; O2SAT 98
--- NOTE | 2018-05-20 16:28 | Progress Note ---
Internal Med Progress Note Date of Service: May 20, 2018. Provider Documentation: Subjective: Patient seen and examined today and feeling better. Denied worsening abdominal or back pain symptoms. Denied vomiting. Denied chest pain and shortness of breath. Physical exam General Appearance: no apparent distress Head: normocephalic, atraumatic Eyes: normal inspection, sclerae normal ENT: normal ENT inspection, hearing grossly normal Neck: supple, thyroid normal, trachea midline Respiratory/Chest: chest non-tender, lungs clear, normal breath sounds, no respiratory distress, no accessory muscle use Cardiovascular: no edema, no murmur, normal peripheral pulses Abdomen/GI: normal bowel sounds, non tender, soft, no organomegaly Back: normal inspection, nontender Extremities/Musculoskelatal: normal inspection, no calf tenderness, no pedal edema Neurologic/Psych: no motor/sensory deficits, alert, normal mood/affect, oriented x 3 Skin: normal color, warm/dry, no rash ASSESSMENT & PLAN: Hospital Course and Plans -Fever, dysuria, flank and CVA pain x 2 days -Febrile at 39.2 on admission, tachycardic to 117 -no obvious CT finding of pyelonephritis CT abdomen and pelvis read : minimal sigmoid wall thickening with cystitis E.coli in the urine of a male patient, the infection is likely genitourinary in etiology versus a bacteremia rather than a gastrointestinal source -UA + for leuk esterase, wbc, urine bacteria -patient empirically started on IV ciprofloxacin on admission on 05/18/18 -urine culture from admission with E.coli -despite being on IV ciprofloxacin patient spiked fever and so in addition to Ciprofloxacin, IV Zosyn was added on 05/19/18 -by 05/20/18, the admission blood culture returned as no growth to date -Infectious disease evaluated the patient and diagnosis as "Lower urinary tract infection, possible prostatitis with E. coli. Patient likely can be treated with oral ciprofloxacin 500 mg twice daily to complete 2 weeks of therapy" Discharge diagnosis Sepsis secondary to urinary tract infection with E.coli, possible prostatitis Discharge Instructions Discharge to Home Patient to be given Ciprofloxacin 500 mg q12 hours for 12 more days and should start the prescription on 05/21/18 Follow up with primary care doctor 05/25/2018 3:00 PM Anjel Mireles MD [facility] [address], [place] [address] [phone] Vital Signs: Date Time Temp Pulse Resp B/P (MAP) Pulse Ox O2 Delivery O2 Flow Rate FiO2 05/20/18 15:30 37.1 75 22 120/77 (91) 98 Room Air 05/20/18 09:28 Room Air 05/20/18 07:04 36.8 80 20 97/59 (72) 97 Room Air 05/19/18 23:01 36.9 78 18 119/76 (90) 96 Room Air 05/19/18 20:40 38.1 98 16 111/74 (86) 95 Room Air 05/19/18 20:01 Room Air 05/19/18 18:46 39.0 Lab Results: Microbiology Results 05/19/18 Blood Culture, Received Pending 05/19/18 Blood Culture, Received Pending
[2018-05-20] MEDS ORDERED: CPR500 PO (16:34)
[2018-05-20] MEDS ORDERED: ACET-1047 PO (16:34)
--- NOTE | 2018-05-20 16:46 | Discharge Instructions ---
Discharge Instructions Date of Service May 20, 2018. Admission Reason for Admission: Sepsis Discharge Discharge Diagnosis / Problem: Sepsis from urinary tract infection with E.coli , possibleprostatitis Discharge Goals Goal(s): Improve disease control Activity Recommendations Activity Limitations: per Instructions/Follow-up section Lifting Limitations: none Exercise/Sports Limitations: none May Resume Sexual Activity: after two weeks Shower/Bathe: no limitations Driving or Machine Use: no limitations . Instructions / Follow-Up Instructions / Follow-Up Hospital Course and Plans -Fever, dysuria, flank and CVA pain x 2 days -Febrile at 39.2 on admission, tachycardic to 117 -no obvious CT finding of pyelonephritis CT abdomen and pelvis read : minimal sigmoid wall thickening with cystitis E.coli in the urine of a male patient, the infection is likely genitourinary in etiology versus a bacteremia rather than a gastrointestinal source -UA + for leuk esterase, wbc, urine bacteria -patient empirically started on IV ciprofloxacin on admission on 05/18/18 -urine culture from admission with E.coli -despite being on IV ciprofloxacin patient spiked fever and so in addition to Ciprofloxacin, IV Zosyn was added on 05/19/18 -by 05/20/18, the admission blood culture returned as no growth to date -Infectious disease evaluated the patient and diagnosis as "Lower urinary tract infection, possible prostatitis with E. coli. Patient likely can be treated with oral ciprofloxacin 500 mg twice daily to complete 2 weeks of therapy" Discharge diagnosis Sepsis secondary to urinary tract infection with E.coli, possible prostatitis Discharge Instructions Discharge to Home Patient to be given Ciprofloxacin 500 mg q12 hours for 12 more days and should start the prescription on 05/21/18 Follow up with primary care doctor 05/25/2018 3:00 PM Anjel Mireles MD [facility] [address] [place] [address] [phone] Current Hospital Diet Patient's current hospital diet: AHA Diet (Heart Healthy) Discharge Diet Recommended Diet: AHA Diet (Heart Healthy) Pending Studies Studies pending at discharge: no Laboratory Results 05/19/18 07:59 Red Blood Count 4.37, Mean Corpuscular Volume 93.6, Mean Corpuscular Hemoglobin 31.6, Mean Corpuscular Hemoglobin Concent 33.7, Mean Platelet Volume 9.5, Neutrophils (%) (Auto) 87.1, Lymphocytes (%) (Auto) 5.9, Monocytes (%) (Auto) 6.5, Eosinophils (%) (Auto) 0.2, Basophils (%) (Auto) 0.1, Neutrophils # (Auto) 10.93, Lymphocytes # (Auto) 0.74, Monocytes # (Auto) 0.82, Eosinophils # (Auto) 0.02, Basophils # (Auto) 0.01 05/19/18 07:59 Test 05/18/18 17:15 05/18/18 17:40 05/18/18 19:00 05/19/18 07:59 Estimated Average Glucose 111 mg/dl Hemoglobin A1c 5.5 % (4.5-5.6) Magnesium Level 1.8 mg/dl (1.8-2.4) Total Bilirubin 1.0 mg/dl (0.2-1) Aspartate Amino Transf (AST/SGOT) 18 U/L (15-37) Alanine Aminotransferase (ALT/SGPT) 29 U/L (12-78) Alkaline Phosphatase 73 U/L (45-117) Total Protein 7.6 gm/dl (6.4-8.2) Albumin 3.7 gm/dl (3.4-5.0) Globulin 3.9 gm/dl (2.5-4.0) Albumin/Globulin Ratio 0.9 (0.9-2) Thyroid Stimulating Hormone (TSH) 0.714 uIu/ml (0.300-4.500) Urine Color YELLOW Urine Appearance CLEAR (CLEAR) Urine pH 8.0 (4.5-7.5) Urine Specific [place] 1.016 (1.000-1.030) Urine Protein TRACE (NEG) Urine Glucose (UA) NEG (NEG) Urine Ketones NEG (NEG) Urine Occult Blood TRACE (NEG) Urine Nitrite NEG (NEG) Urine Bilirubin NEG (NEG) Urine Urobilinogen NEG (NEG) Urine Leukocyte Esterase LARGE (NEG) Urine WBC (Auto) >30 /hpf (0-5) Urine RBC (Auto) 5-10 /hpf (0-4) Urine Hyaline Casts (Auto) 1-5 /lpf (0-5) Urine Epithelial Cells (Auto) 0-5 /lpf (0-5) Urine Bacteria (Auto) 4+ (NEG) Lactic Acid Level 1.1 mmol/L (0.4-2.0) White Blood Count 12.54 K/uL (4.8-10.8) Red Blood Count 4.37 M/uL (4.7-6.1) Hemoglobin 13.8 g/dL (14.0-18.0) Hematocrit 40.9 % (42-52) Mean Corpuscular Volume 93.6 fL (80-100) Mean Corpuscular Hemoglobin 31.6 pg (25-34) Mean Corpuscular Hemoglobin Concent 33.7 g/dl (32-36) Platelet Count 205 K/uL (130-400) Mean Platelet Volume 9.5 fL (7.4-10.4) Neutrophils (%) (Auto) 87.1 % Lymphocytes (%) (Auto) 5.9 % Monocytes (%) (Auto) 6.5 % Eosinophils (%) (Auto) 0.2 % Basophils (%) (Auto) 0.1 % Neutrophils # (Auto) 10.93 K/uL (1.4-6.5) Lymphocytes # (Auto) 0.74 K/uL (1.2-3.4) Monocytes # (Auto) 0.82 K/uL (0.11-0.59) Eosinophils # (Auto) 0.02 K/uL (0-0.5) Basophils # (Auto) 0.01 K/uL (0-0.2) RDW Standard Deviation 43.9 fL (36.4-46.3) RDW Coefficient of Variation 12.8 % (11.5-14.5) Immature Granulocyte % (Auto) 0.2 % Immature Granulocyte # (Auto) 0.02 K/uL (0.00-0.02) Anion Gap 6.0 mmol/L (3-11) Est Creatinine Clear Calc Drug Dose 95.6 ml/min Estimated GFR () 93.1 Estimated GFR (Non- 80.3 BUN/Creatinine Ratio 5.7 (10-20) Calcium Level 8.2 mg/dl (8.5-10.1) Date/Time Source Procedure Growth Status 05/19/18 19:40 Blood Blood Culture Pending Received 05/18/18 05:40 Urine , Clean Catch Urine Culture - Final Escherichia Coli Complete Hemoglobin A1c Test 05/18/18 17:15 Range/Units Estimated Average Glucose 111 mg/dl Hemoglobin A1c 5.5 4.5-5.6 % Medical Emergencies . Who to Call and When: Medical Emergencies: If at any time you feel your situation is an emergency, please call 911 immediately. . Non-Emergent Contact Non-Emergency issues call your: Primary Care Provider Call Non-Emergent contact if: you have any medication questions . . "Provider Documentation" section prepared by Luis Miguel Love. .
--- NOTE | 2018-05-20 16:47 | Discharge Summary ---
Discharge Summary Date of Service May 20, 2018. Discharge Summary Admission Date: May 18, 2018 at 20:40 Discharge Date: May 20, 2018 Discharge Disposition: Home Principal Diagnosis: Sepsis secondary to urinary tract infection with E.coli, possible prostatitis Medication Reconciliation New Medications: Acetaminophen (Mapap) 325 Mg Tab 650 MG PO Q4H PRN for Fever for 5 Days, #40 TAB Ciprofloxacin (Ciprofloxacin HCl) 500 Mg Tab 500 MG PO Q12H for 12 Days, #24 TAB Continued Medications: Ibuprofen Tab (Motrin) 800 Mg Tab 800 MG PO Q8H PRN for Pain, TAB Admission Information HPI (per Admitting provider): Patient is a 43-year-old male with PMH of migraines who presents with fever of 100F and lower back pain starting yesterday morning. Patient describes back pain as 4/10, throbbing and constant with radiation to his flank bilaterally. Took some ibuprofen which improved symptoms but continued to feel "sluggish". Also endorses burning during and after urination as well as decreased appetite and dull headache. Denies any hematuria or pyuria. Denies any history of kidney stones. Denies chills, lightheadedness, visual changes, chest pain, shortness of breath, abdominal pain, nausea, vomiting, constipation, diarrhea, melena or hematochezia. Had a normal bowel movement last evening. Does not have a primary care physician currently. Physical Exam (per Admitting): General Appearance: WD/WN, no apparent distress, + pertinent finding ( Resting comfortably, watching TV) Head: normocephalic, atraumatic Eyes: normal inspection, PERRL, sclerae normal ENT: normal ENT inspection, hearing grossly normal, pharynx normal (Moist mucous membranes) Neck: supple, thyroid normal, trachea midline Respiratory/Chest: chest non-tender, lungs clear, normal breath sounds, no respiratory distress, no accessory muscle use Cardiovascular: no edema, no murmur, normal peripheral pulses Abdomen/GI: normal bowel sounds, non tender, soft, no organomegaly Back: normal inspection, + left CVA tenderness, + right CVA tenderness Extremities/Musculoskelatal: normal inspection, no calf tenderness, no pedal edema Neurologic/Psych: no motor/sensory deficits, alert, normal mood/affect, oriented x 3 Skin: normal color, warm/dry, no rash Hospital Course Hospital Course and Plans -Fever, dysuria, flank and CVA pain x 2 days -Febrile at 39.2 on admission, tachycardic to 117 -no obvious CT finding of pyelonephritis CT abdomen and pelvis read : minimal sigmoid wall thickening with cystitis E.coli in the urine of a male patient, the infection is likely genitourinary in etiology versus a bacteremia rather than a gastrointestinal source -UA + for leuk esterase, wbc, urine bacteria -patient empirically started on IV ciprofloxacin on admission on 05/18/18 -urine culture from admission with E.coli -despite being on IV ciprofloxacin patient spiked fever and so in addition to Ciprofloxacin, IV Zosyn was added on 05/19/18 -by 05/20/18, the admission blood culture returned as no growth to date -Infectious disease evaluated the patient and diagnosis as "Lower urinary tract infection, possible prostatitis with E. coli. Patient likely can be treated with oral ciprofloxacin 500 mg twice daily to complete 2 weeks of therapy" Discharge diagnosis Sepsis secondary to urinary tract infection with E.coli, possible prostatitis Discharge Instructions Discharge to Home Patient to be given Ciprofloxacin 500 mg q12 hours for 12 more days and should start the prescription on 05/21/18 Follow up with primary care doctor 05/25/2018 3:00 PM Anjel Mireles MD [facility] [place] [address] [place], [place] [address] [phone] Total time spent on discharge = 40 minutes This includes examination of the patient, discharge planning, medication reconciliation, and communication with other providers. Discharge Instructions see above
[2018-05-20 16:57] VITALS: BP 120/77; PULSE 75; TEMP 37.1; O2SAT 98
[2018-05-20] MEDS ORDERED: CIPROFLOXACIN 500 MG TAB PO SCH (21:00)
== END 2018-05-20 17:41 | disposition home or self-care (01) | DRG 872 ==
LOC: C.EDB 16:24 → C.MS4W 20:40 → ENRESERV 20:56
PROVIDERS: ADMIT Hospitalist; ATTEND Hospitalist
DX: A41.51 Sepsis due to Escherichia coli [E. coli] (principal); N10 Acute pyelonephritis; R73.9 Hyperglycemia, unspecified; N41.9 Inflammatory disease of prostate, unspecified; Z82.49 Family history of ischemic heart disease and other diseases of the circulatory system; I10 Essential (primary) hypertension